=== PATIENT | male | born 1965 | race Caucasian/White ===

== ENCOUNTER 2016-11-16 17:34 | Emergency (ER) | payer BC, OTHER ==
[~2016-11-16] VITALS: Ht 188 cm; Wt 106.8 kg
[2016-11-16 18:43] VITALS: BP 146/94
== END 2016-11-16 18:44 | disposition home or self-care (01) ==
LOC: M ED 17:34
DX: S50.812A Abrasion of left forearm, initial encounter (principal); X58.XXXA Exposure to other specified factors, initial encounter; Y92.099 Unspecified place in other non-institutional residence as the place of occurrence of the external cause; Y93.89 Activity, other specified; Y99.9 Unspecified external cause status

== ENCOUNTER → 2019-12-02 | Outpatient (CLI) | payer OTHER, BC ==
[2019-12-02 12:29] LABS: MEAN CORPUSCULAR HEMOGLOBIN 32.9 pg (27.0-33.0); MEAN CORPUSCULAR HGB CONC 34.9 g/dl (32.0-36.5); MEAN CORPUSCULAR VOLUME 94.3 fl (80.0-96.0); PLATELET COUNT, AUTOMATED 151 10^3/uL (150-450); RED BLOOD COUNT 4.56 10^6/uL (4.30-6.10); WHITE BLOOD COUNT 7.6 10^3/uL (4.0-10.0)
[2019-12-02 12:52] LABS: HEMOGLOBIN A1c 5.6 %
[2019-12-02 12:57] LABS: ALBUMIN 3.9 GM/DL (3.2-5.2); ALT/SGPT 52 U/L (12-78); BILIRUBIN,TOTAL 0.6 MG/DL (0.2-1.0); BLOOD UREA NITROGEN 17 MG/DL (7-18); CALCIUM LEVEL 8.7 MG/DL (8.5-10.1); CARBON DIOXIDE LEVEL 29 MEQ/L (21-32); CHLORIDE LEVEL 107 MEQ/L (98-107); CHOLESTEROL LEVEL 162 MG/DL (<200); CHOLESTEROL RISK RATIO 3.375 (<5); CREATININE FOR GFR 1.24 MG/DL (0.70-1.30); GLOMERULAR FILTRATION RATE > 60.0 (>56); GLUCOSE, FASTING 104 MG/DL (70-100); HDL CHOLESTEROL 48 MG/DL (>40); LDL CHOLESTEROL 95 MG/DL (<100); NON-HDL-C 114 MG/DL; POTASSIUM SERUM 4.4 MEQ/L (3.5-5.1); SODIUM LEVEL 139 MEQ/L (136-145); TOTAL PROTEIN 7.8 GM/DL (6.4-8.2); TRIGLYCERIDES LEVEL 93 MG/DL (<150)
== END ==
LOC: M PLALAB 08:51
PROVIDERS: ATTEND Nurse Practitioner Family
DX: Z13.220 Encounter for screening for lipoid disorders (principal); Z13.228 Encounter for screening for other metabolic disorders

== ENCOUNTER → 2020-04-22 | Outpatient (CLI) | payer OTHER, BC | LOC: M LABSMTC 09:47 | PROVIDERS: ATTEND Anesthesiology | DX: Z01.812 Encounter for preprocedural laboratory examination (principal); Z20.822 Contact with and (suspected) exposure to COVID-19 ==

== ENCOUNTER 2020-04-27 09:52 | Day surgery (SDC) | payer BC, OTHER ==
[~2020-04-27] VITALS: Ht 188 cm; Wt 112.7 kg
[~2020-04-27 09:52] MED LIST: NS 1,000 ML IV ONE
[2020-04-27] MEDS ORDERED: LIDOCAINE 2% 100MG/5ML SDV (FOR ANES.) As Ordered ONE (12:19)
[2020-04-27] MEDS ORDERED: propofoL 500 MG/50 ML VIAL As Ordered ONE (12:19)
--- NOTE | 2020-04-27 12:30 | ROOR ---
Patient Name: Kirt Anthony Procedure Date: 04/27/2020 12:12 PM Date of : 1965 Age: 54 Room: [facility] Gender: Male Note Status: Finalized Procedure: Colonoscopy Indications: Screening for colorectal malignant neoplasm Providers: Robson COVINGTON MD Referring MD: Sandra Ervin Requesting Provider: Medicines: Monitored Anesthesia Care Complications: No immediate complications. Procedure: Pre-Anesthesia Assessment: - The heart rate, respiratory rate, oxygen saturations, blood pressure, adequacy of pulmonary ventilation, and response to care were monitored throughout the procedure. The Colonoscope was introduced through the anus and advanced to the terminal ileum, with identification of the appendiceal orifice and IC valve. The colonoscopy was performed without difficulty. The patient tolerated the procedure well. The quality of the bowel preparation was good. Findings: The perianal and digital rectal examinations were normal. Small Internal Hemorrhoids. The entire examined colon appeared normal on direct and retroflexion views. Impression: - Small Internal Hemorrhoids. - The entire examined colon is normal on direct and retroflexion views. - No specimens collected. Recommendation: - Repeat colonoscopy in 10 years for screening purposes. Procedure Code(s): --- Professional --- 61369, Colonoscopy, flexible; diagnostic, including collection of specimen(s) by brushing or washing, when performed (separate procedure) Diagnosis Code(s): --- Professional --- Z12.11, Encounter for screening for malignant neoplasm of colon CPT copyright 2019 [employer]. All rights reserved. The codes documented in this report are preliminary and upon computational geneticist review may be revised to meet current compliance requirements. Robson Covington MD Robson COVINGTON MD 04/27/2020 12:29:51 PM Electronically signed by Robson COVINGTON MD Number of Addenda: 0 Note Initiated On: 04/27/2020 12:12 PM Estimated Blood Loss: Estimated blood loss: none.
[2020-04-27 12:50] VITALS: BP 145/79
== END 2020-04-27 12:58 | disposition home or self-care (01) ==
LOC: M OPP 09:52
PROVIDERS: ATTEND Internal Medicine Gastroenterology
DX: Z12.11 Encounter for screening for malignant neoplasm of colon (principal); K64.8 Other hemorrhoids; Z83.3 Family history of diabetes mellitus; Z82.49 Family history of ischemic heart disease and other diseases of the circulatory system; Z90.49 Acquired absence of other specified parts of digestive tract

== ENCOUNTER → 2021-03-05 | Outpatient (CLI) | payer BC, OTHER ==
[2021-03-05 15:07] LABS: BASO % 0.4 % (0.0-1.0); EOS # 0.2 10^3/uL (0.0-0.5); EOS % 1.9 % (0.0-3.0); HEMATOCRIT 42.1 % (42.0-52.0); HEMOGLOBIN 14.3 g/dl (13.5-17.5); LYMPH # 2.4 10^3/uL (1.5-5.0); LYMPH % 22.2 % (24.0-44.0); MEAN CORPUSCULAR HEMOGLOBIN 32.4 pg (27.0-33.0); MEAN CORPUSCULAR VOLUME 95.2 fl (80.0-96.0); MONO # 1.3 10^3/uL (0.0-0.8); MONO % 11.8 % (2.0-8.0); NEUTROPHILS # 6.8 10^3/uL (1.5-8.5); NEUTROPHILS % 63.1 % (36.0-66.0); PLATELET COUNT, AUTOMATED 163 10^3/uL (150-450); RED BLOOD COUNT 4.42 10^6/uL (4.30-6.10); WHITE BLOOD COUNT 10.8 10^3/uL (4.0-10.0)
[2021-03-05 18:31] LABS: ALBUMIN 3.8 GM/DL (3.2-5.2); ALT/SGPT 49 U/L (12-78); BILIRUBIN,TOTAL 0.4 MG/DL (0.2-1.0); BLOOD UREA NITROGEN 14 MG/DL (7-18); CALCIUM LEVEL 8.9 MG/DL (8.5-10.1); CARBON DIOXIDE LEVEL 29 MEQ/L (21-32); CHLORIDE LEVEL 108 MEQ/L (98-107); CREATININE FOR GFR 1.08 MG/DL (0.70-1.30); GLOMERULAR FILTRATION RATE > 60.0 (>56); GLUCOSE, FASTING 122 MG/DL (70-100); POTASSIUM SERUM 4.2 MEQ/L (3.5-5.1); SODIUM LEVEL 143 MEQ/L (136-145); TOTAL PROTEIN 7.7 GM/DL (6.4-8.2)
[2021-03-05 19:12] LABS: HEMOGLOBIN A1c 5.9 %
== END ==
LOC: M PLALAB 10:44
PROVIDERS: ATTEND Nurse Practitioner Family
DX: Z00.00 Encounter for general adult medical examination without abnormal findings (principal)

== ENCOUNTER 2024-01-02 16:18 | Inpatient (IN) | payer BC, OTHER ==
[~2024-01-02] VITALS: Ht 188 cm; Wt 111.4 kg
[2024-01-02 20:54] LABS: BASO % 0.4 % (0.0-1.0); EOS # 0.2 10^3/uL (0.0-0.5); HEMATOCRIT 36.3 % (42.0-52.0); HEMOGLOBIN 12.5 g/dl (13.5-17.5); LYMPH # 2.1 10^3/uL (1.5-5.0); MEAN CORPUSCULAR HEMOGLOBIN 32.1 pg (27.0-33.0); MEAN CORPUSCULAR HGB CONC 34.4 g/dl (32.0-36.5); MEAN CORPUSCULAR VOLUME 93.3 fl (80.0-96.0); MONO # 1.1 10^3/uL (0.0-0.8); NEUTROPHILS # 6.8 10^3/uL (1.5-8.5); NEUTROPHILS % 66.1 % (36.0-66.0); PLATELET COUNT, AUTOMATED 261 10^3/uL (150-450); RED BLOOD COUNT 3.89 10^6/uL (4.30-6.10); WHITE BLOOD COUNT 10.3 10^3/uL (4.0-10.0)
[2024-01-02] MEDS ORDERED: ISOVUE-370 76% 100ML VIAL As Ordered ONE (20:58)
[2024-01-02 21:04] LABS: INR 1.1; PROTHROMBIN TIME 13.9 SECONDS (12.5-14.5)
[2024-01-02 21:15] LABS: CK-MB VALUE MASS < 1.0 NG/ML (<3.6); CPK CREATINE PHOSPHOKINASE 113 U/L (46-171); MB/CK RELATIVE INDEX 0.88 (< OR =4)
[2024-01-02] MEDS ORDERED: HOME MED LIST COMPLETE! XX SCH (22:05)
[2024-01-02] MEDS: ENOXAPARIN 100MG/1ML SYRINGE (J1650 PER 10MG) SC ONE (22:08)
[2024-01-02] MEDS ORDERED: ACETAMINOPHEN 325 MG TAB PO PRN (22:20)
[2024-01-02] MEDS ORDERED: MOM 30ML SUSPENSION UDC PO PRN (22:20)
[2024-01-02] MEDS ORDERED: ENOXAPARIN 120MG/0.8ML SYRINGE SC SCH (22:30)
[2024-01-03 04:15] VITALS: BP 158/74; TEMP 98; O2SAT 96
[2024-01-03 06:00] VITALS: BP 136/64; O2SAT 95
[2024-01-03 07:00] VITALS: O2SAT 94
[2024-01-03 08:00] VITALS: BP 130/64; TEMP 98.1; O2SAT 95
[2024-01-03] MEDS ORDERED: ENOXAPARIN 100MG/1ML SYRINGE (J1650 PER 10MG) SC SCH (09:00)
[2024-01-03 09:21] LABS: HEMATOCRIT 35.2 % (42.0-52.0); HEMOGLOBIN 12.1 g/dl (13.5-17.5); MEAN CORPUSCULAR HEMOGLOBIN 31.8 pg (27.0-33.0); MEAN CORPUSCULAR HGB CONC 34.4 g/dl (32.0-36.5); MEAN CORPUSCULAR VOLUME 92.6 fl (80.0-96.0); PLATELET COUNT, AUTOMATED 244 10^3/uL (150-450); WHITE BLOOD COUNT 9.5 10^3/uL (4.0-10.0)
[2024-01-03 09:46] LABS: ALBUMIN 3.4 G/DL (3.2-5.2); ALKALINE PHOSPHATASE 92 U/L (46-116); ALT/SGPT 42 U/L (7.0-40); AST/SGOT 22 U/L (<34); BILIRUBIN,TOTAL 0.8 MG/DL (0.3-1.2); BLOOD UREA NITROGEN 15 MG/DL (9-23); CALCIUM LEVEL 9.1 MG/DL (8.5-10.1); CARBON DIOXIDE LEVEL 28 MMOL/L (20-31); CHLORIDE LEVEL 103 MMOL/L (98-107); GLOMERULAR FILTRATION RATE > 60.0 (>56); GLUCOSE, FASTING 189 MG/DL (60-100); MAGNESIUM LEVEL 2.1 MG/DL (1.8-2.4); POTASSIUM SERUM 4.2 MMOL/L (3.5-5.1); SODIUM LEVEL 137 MMOL/L (136-145); TOTAL PROTEIN 7.6 G/DL (5.7-8.2)
[2024-01-03] MEDS ORDERED: ELIQ5TAB PO ×2 (09:51→11:24)
[2024-01-03 10:00] VITALS: BP 160/69; O2SAT 96
[2024-01-03] MEDS: ENOXAPARIN 120MG/0.8ML SYRINGE SC SCH (10:06)
[2024-01-03 12:04] VITALS: BP 140/72; TEMP 98.5; O2SAT 96
[2024-01-06 01:11] LABS: CARDIOLIPIN IGA ANTIBODY 3.8 APL-U/mL (<20.0); CARDIOLIPIN IGG ANTIBODY 3.7 GPL-U/mL (<20.0); CARDIOLIPIN IGM ANTIBODY 45.4 MPL-U/mL (<20.0)
== END 2024-01-03 13:47 | disposition home or self-care (01) | DRG 134 ==
LOC: M ED 16:18 → M ED INP 22:17 → M ICU 01-03 04:05
PROVIDERS: ADMIT Internal Medicine; ATTEND Internal Medicine
PROC: B246ZZZ Ultrasonography of Right and Left Heart (ICD-10-PCS; principal; 2024-01-03)
DX: I26.99 Other pulmonary embolism without acute cor pulmonale (principal); I10 Essential (primary) hypertension; Z86.16 Personal history of COVID-19; I82.412 Acute embolism and thrombosis of left femoral vein

== ENCOUNTER → 2024-02-04 | Outpatient (REF) | payer BC ==
[~2024-02-04] MED LIST changes: +ELIQ5TAB PO; -NS 1,000 ML IV ONE
[2024-02-04 14:02] LABS: PSA SCREENING 0.39 NG/ML (< 4.00)
[2024-02-04 14:05] LABS: FERRITIN 358.9 NG/ML (10.5-307.3)
[2024-02-04 14:07] LABS: BASO % 0.4 % (0.0-1.0); EOS # 0.2 10^3/uL (0.0-0.5); EOS % 2.5 % (0.0-3.0); HEMATOCRIT 41.4 % (42.0-52.0); HEMOGLOBIN 13.8 g/dl (13.5-17.5); LYMPH # 1.8 10^3/uL (1.5-5.0); LYMPH % 25.4 % (24.0-44.0); MEAN CORPUSCULAR HEMOGLOBIN 31.7 pg (27.0-33.0); MEAN CORPUSCULAR HGB CONC 33.3 g/dl (32.0-36.5); MONO % 13.6 % (2.0-8.0); NEUTROPHILS # 4.1 10^3/uL (1.5-8.5); NEUTROPHILS % 57.5 % (36.0-66.0); PLATELET COUNT, AUTOMATED 156 10^3/uL (150-450); RED BLOOD COUNT 4.36 10^6/uL (4.30-6.10); WHITE BLOOD COUNT 7.1 10^3/uL (4.0-10.0)
[2024-02-08 18:37] LABS: APTT APSCOMP 41 sec (<=40); DRVTT Screen Seconds 48 sec (<=45); DRVVT CONFIRM Negative (Negative); HEXAGONAL PHASE CONFIRM Negative (Negative)
[2024-02-09 23:04] LABS: Anticardiolipin Ab, IGG 3.2 GPL-U/mL (<20.0); Anticardiolipin Ab, IGM 34.9 MPL-U/mL (<20.0); Anticardiolipin Ab, IgA 2.8 APL-U/mL (<20.0); Beta-2 GLYCOPROTEIN I, IGG 2.5 U/mL (<20.0)
== END ==
LOC: M SFHCPLAZ 08:26
PROVIDERS: ATTEND Internal Medicine Hematology
DX: I82.90 Acute embolism and thrombosis of unspecified vein (principal)
CPT/HCPCS: 82728; 83540; 83880; 85025; 85046; 85379; 85730; 86146; 86147; G0103

== ENCOUNTER → 2024-03-10 | Outpatient (POV) | payer BC ==
[~2024-03-10] VITALS: Ht 188 cm; Wt 111.4 kg
[2024-03-10 15:14] VITALS: BP 176/86; O2SAT 96
== END ==
LOC: M IRPOV 15:03
PROVIDERS: ATTEND Radiology Diagnostic Radiology
DX: I82.412 Acute embolism and thrombosis of left femoral vein (principal); I82.492 Acute embolism and thrombosis of other specified deep vein of left lower extremity; I26.99 Other pulmonary embolism without acute cor pulmonale; I10 Essential (primary) hypertension; R23.8 Other skin changes; D68.69 Other thrombophilia; Z79.01 Long term (current) use of anticoagulants; Z80.8 Family history of malignant neoplasm of other organs or systems; Z82.3 Family history of stroke; Z82.49 Family history of ischemic heart disease and other diseases of the circulatory system; Z86.16 Personal history of COVID-19; Z86.718 Personal history of other venous thrombosis and embolism; Z91.199 Patient's noncompliance with other medical treatment and regimen due to unspecified reason
CPT/HCPCS: G0463; G2212

== ENCOUNTER → 2024-03-15 | Outpatient (CLI) | payer BC ==
[2024-03-15 13:22] LABS: HEMOGLOBIN A1c 6.9 % (4.0-6.0)
[2024-03-15 13:37] LABS: ALBUMIN 3.8 G/DL (3.2-5.2); ALKALINE PHOSPHATASE 85 U/L (40-129); ALT/SGPT 44 U/L (7.0-40); AST/SGOT 24 U/L (<34); BILIRUBIN,TOTAL 0.4 MG/DL (0.3-1.2); BLOOD UREA NITROGEN 16 MG/DL (9-23); CALCIUM LEVEL 9.1 MG/DL (8.5-10.1); CARBON DIOXIDE LEVEL 30 MMOL/L (20-31); CHLORIDE LEVEL 104 MMOL/L (98-107); CHOLESTEROL LEVEL 157 MG/DL (<200); CHOLESTEROL RISK RATIO 3.28 (<5); CREATININE FOR GFR 0.96 MG/DL (0.70-1.30); GLOMERULAR FILTRATION RATE > 60.0 (>56); GLUCOSE, FASTING 160 MG/DL (60-100); HDL CHOLESTEROL 47.8 MG/DL (>40); LDL CHOLESTEROL 93.4 MG/DL (<100); NON-HDL-C 109.2 MG/DL; POTASSIUM SERUM 4.1 MMOL/L (3.5-5.1); PSA SCREENING 0.23 NG/ML (< 4.00); SODIUM LEVEL 141 MMOL/L (136-145); TOTAL PROTEIN 8.1 G/DL (5.7-8.2); TRIGLYCERIDES LEVEL 79 MG/DL (<150)
== END ==
LOC: M PLALAB 11:16
PROVIDERS: ATTEND Nurse Practitioner Family
DX: I82.412 Acute embolism and thrombosis of left femoral vein (principal); R73.01 Impaired fasting glucose; Z13.220 Encounter for screening for lipoid disorders; Z12.5 Encounter for screening for malignant neoplasm of prostate
CPT/HCPCS: 36415; 80053; 80061; 83036; G0103

== ENCOUNTER → 2024-04-12 | Outpatient (CLI) | payer BC ==
[~2024-04-12] MED LIST changes: +ISOVUE-370 76% 100ML VIAL As Ordered ONE
== END ==
LOC: M RAD 12:16
PROVIDERS: ATTEND Radiology Diagnostic Radiology
DX: I87.002 Postthrombotic syndrome without complications of left lower extremity (principal)
CPT/HCPCS: 74177; Q9967

== ENCOUNTER → 2024-04-14 | Outpatient (REF) | payer BC ==
[~2024-04-14] MED LIST changes: -ISOVUE-370 76% 100ML VIAL As Ordered ONE
== END ==
LOC: M SFHCPLAZ 09:04
PROVIDERS: ATTEND Internal Medicine Hematology
DX: E27.8 Other specified disorders of adrenal gland (principal)

== ENCOUNTER → 2024-05-12 | Outpatient (CLI) | payer BC ==
[~2024-05-12] MED LIST changes: +ACET32TAB PO; +AMLO25TA PO; +LISI5TAB11 PO; +METF500T13 PO; +PROHANCE 279.3MG/ML 15ML VIAL ONE; +PROHANCE 279.3MG/ML 5ML VIAL ONE
== END ==
LOC: M PLAIMG 11:20
PROVIDERS: ATTEND Nurse Practitioner Family
DX: E27.8 Other specified disorders of adrenal gland (principal)
CPT/HCPCS: 74183; A9576

== ENCOUNTER 2024-05-13 08:31 | Observation (INO) | payer BC ==
[~2024-05-13] VITALS: Ht 188 cm; Wt 113.6 kg
[~2024-05-13 08:31] MED LIST changes: -ACET32TAB PO; -AMLO25TA PO; -LISI5TAB11 PO; -METF500T13 PO; -PROHANCE 279.3MG/ML 15ML VIAL ONE; -PROHANCE 279.3MG/ML 5ML VIAL ONE
[2024-05-13] MEDS ORDERED: NS (Normal Saline) 0.9% 1,000 ML IV SCH ×2 (09:00→13:35)
[2024-05-13] MEDS ORDERED: HEPARIN 1,000UNITS/ML 10ML VIAL (FOR RADIOLOGY & DIALYSIS ONLY) As Ordered ONE (09:54)
[2024-05-13] MEDS ORDERED: HEPARIN 1,000UNITS/ML 10ML VIAL (FOR RADIOLOGY & DIALYSIS ONLY) IV SCH (09:55)
[2024-05-13] MEDS: fentaNYL 100 MCG/2 ML INJECTION IV PRN (11:22)
[2024-05-13] MEDS: MIDAZOLAM INJ 2MG/2ML VIAL IV PRN (11:22)
[2024-05-13] MEDS ORDERED: LABETALOL 100MG/20ML VIAL As Ordered ONE (11:48)
[2024-05-13] MEDS: LABETALOL 100MG/20ML VIAL IV STA ×3 (11:55→12:16)
[2024-05-13] MEDS: HEPARIN 1,000UNITS/ML 10ML VIAL (FOR RADIOLOGY & DIALYSIS ONLY) IV SCH (12:05)
[2024-05-13] MEDS ORDERED: hydrALAZINE 20MG/ML 1ML VIAL As Ordered ONE (12:38)
[2024-05-13] MEDS: hydrALAZINE 20MG/ML 1ML VIAL IV STA ×2 (12:46→13:01)
[2024-05-13 13:01] VITALS: BP 192/98
[2024-05-13] MEDS: LIDOCAINE 1% MDV 20ML VIAL SC SCH (13:20)
[2024-05-13] MEDS: ISOVUE-300 61% 100ML VIAL IV SCH (13:21)
[2024-05-13] MEDS ORDERED: ACETAMINOPHEN 325 MG TAB PO PRN (14:55)
[2024-05-13 15:19] LABS: HEMATOCRIT 39.7 % (42.0-52.0); HEMOGLOBIN 14.1 g/dl (13.5-17.5); MEAN CORPUSCULAR HEMOGLOBIN 32.5 pg (27.0-33.0); MEAN CORPUSCULAR HGB CONC 35.5 g/dl (32.0-36.5); MEAN CORPUSCULAR VOLUME 91.5 fl (80.0-96.0); PLATELET COUNT, AUTOMATED 166 10^3/uL (150-450); RED BLOOD COUNT 4.34 10^6/uL (4.30-6.10); WHITE BLOOD COUNT 20.7 10^3/uL (4.0-10.0)
[2024-05-13 15:31] LABS: ALBUMIN 3.5 G/DL (3.2-5.2); ALKALINE PHOSPHATASE 65 U/L (40-129); ALT/SGPT 49 U/L (7.0-40); AST/SGOT 28 U/L (<34); BILIRUBIN,TOTAL 0.8 MG/DL (0.3-1.2); BLOOD UREA NITROGEN 16 MG/DL (9-23); CALCIUM LEVEL 8.6 MG/DL (8.5-10.1); CARBON DIOXIDE LEVEL 20 MMOL/L (20-31); CHLORIDE LEVEL 109 MMOL/L (98-107); CREATININE FOR GFR 0.85 MG/DL (0.70-1.30); GLOMERULAR FILTRATION RATE > 60.0 (>56); GLUCOSE, FASTING 182 MG/DL (60-100); POTASSIUM SERUM 4.1 MMOL/L (3.5-5.1); SODIUM LEVEL 140 MMOL/L (136-145); TOTAL PROTEIN 7.5 G/DL (5.7-8.2)
[2024-05-13 15:38] LABS: INR 1.22; PROTHROMBIN TIME 15.7 SECONDS (12.5-14.5)
[2024-05-13 15:59] LABS: PARTIAL THROMBOPLASTIN TIME > 240.0 SECONDS (24.8-34.2)
[2024-05-13 17:01] VITALS: BP 168/80; TEMP 97.4; O2SAT 96
[2024-05-13 18:00] VITALS: BP 137/70
[2024-05-13] MEDS: APIXABAN 5 MG TAB (ELIQUIS) PO SCH (20:14)
[2024-05-13 20:15] VITALS: BP 134/65; TEMP 98.2; O2SAT 96
[2024-05-13] MEDS ORDERED: DEXTROSE 50% 50ML SYRINGE IV PRN (21:40)
[2024-05-13] MEDS ORDERED: GLUCAGON INJ 1MG VIAL SC PRN (21:40)
[2024-05-13] MEDS ORDERED: GLUCOSE 4 GM CHEW PO PRN (21:40)
[2024-05-13 22:15] LABS: CHOLESTEROL LEVEL 156 MG/DL (<200); CHOLESTEROL RISK RATIO 3.57 (<5); HDL CHOLESTEROL 43.6 MG/DL (>40); LDL CHOLESTEROL 106.2 MG/DL (<100); NON-HDL-C 112.4 MG/DL; TRIGLYCERIDES LEVEL 31 MG/DL (<150)
[2024-05-13 22:26] LABS: HEMOGLOBIN A1c 6.6 % (4.0-6.0)
[2024-05-13 23:35] VITALS: BP 142/72; TEMP 97.6; O2SAT 96
[2024-05-14 03:50] VITALS: BP 152/74; TEMP 97.9; O2SAT 95
[2024-05-14 06:53] LABS: HEMOGLOBIN 13.6 g/dl (13.5-17.5); MEAN CORPUSCULAR HEMOGLOBIN 32.2 pg (27.0-33.0); MEAN CORPUSCULAR HGB CONC 34.9 g/dl (32.0-36.5); MEAN CORPUSCULAR VOLUME 92.4 fl (80.0-96.0); PLATELET COUNT, AUTOMATED 149 10^3/uL (150-450); RED BLOOD COUNT 4.22 10^6/uL (4.30-6.10); WHITE BLOOD COUNT 13.5 10^3/uL (4.0-10.0)
[2024-05-14] MEDS ORDERED: ELIQ5TAB PO (06:55)
[2024-05-14] MEDS ORDERED: HOME MED LIST COMPLETE! XX SCH (06:55)
[2024-05-14 07:07] LABS: INR 1.2; PROTHROMBIN TIME 15.5 SECONDS (12.5-14.5)
[2024-05-14 07:27] LABS: ALBUMIN 3.5 G/DL (3.2-5.2); ALKALINE PHOSPHATASE 66 U/L (40-129); ALT/SGPT 42 U/L (7.0-40); AST/SGOT 18 U/L (<34); BILIRUBIN,TOTAL 0.6 MG/DL (0.3-1.2); BLOOD UREA NITROGEN 15 MG/DL (9-23); CALCIUM LEVEL 8.4 MG/DL (8.5-10.1); CARBON DIOXIDE LEVEL 28 MMOL/L (20-31); CHLORIDE LEVEL 106 MMOL/L (98-107); CREATININE FOR GFR 0.85 MG/DL (0.70-1.30); GLOMERULAR FILTRATION RATE > 60.0 (>56); GLUCOSE, FASTING 155 MG/DL (60-100); POTASSIUM SERUM 3.9 MMOL/L (3.5-5.1); SODIUM LEVEL 141 MMOL/L (136-145); TOTAL PROTEIN 7.2 G/DL (5.7-8.2)
[2024-05-14] MEDS ORDERED: ACET32TAB PO (07:36)
[2024-05-14] MEDS ORDERED: METF500T13 PO (07:36)
[2024-05-14] MEDS ORDERED: AMLO25TA PO (07:37)
[2024-05-14 07:43] VITALS: BP 155/75; TEMP 97.4; O2SAT 95
[2024-05-14] MEDS ORDERED: LISI5TAB11 PO (08:53)
[2024-05-14] MEDS: INSULIN LISPRO (NovoLOG) PER UNIT SC SCH (09:11)
[2024-06-16] MEDS ORDERED: NORV5TAB PO (14:18)
== END 2024-05-14 11:43 | disposition home or self-care (01) ==
LOC: M IRPRO 08:31 → M PCU 08:32 → M IRPRO 16:39 → UNDOADMOB 16:39 → M PCU 16:39 → M IRPRO 16:40 → M PCU 16:40 → M LDI 16:40 → UNDODISOB 05-14 11:43
PROVIDERS: ADMIT Internal Medicine; ATTEND Internal Medicine
DX: I87.009 Postthrombotic syndrome without complications of unspecified extremity (principal); I95.81 Postprocedural hypotension; R06.02 Shortness of breath; H53.8 Other visual disturbances; R42 Dizziness and giddiness; F41.9 Anxiety disorder, unspecified; I10 Essential (primary) hypertension; E11.9 Type 2 diabetes mellitus without complications; Z86.16 Personal history of COVID-19; Z86.718 Personal history of other venous thrombosis and embolism; Z86.711 Personal history of pulmonary embolism; Z83.3 Family history of diabetes mellitus; Z82.49 Family history of ischemic heart disease and other diseases of the circulatory system; Z79.01 Long term (current) use of anticoagulants
CPT/HCPCS: 36415; 37187; 37248; 37249; 71045; 80053; 80061; 83036; 85027; 85610; 85730; 93005; 99152; 99153; C1757; C1894; J0360; J1815; J1920; J2250; J3010; Q9967

== ENCOUNTER → 2024-06-16 | Outpatient (POV) | payer BC ==
[~2024-06-16] VITALS: Ht 188 cm; Wt 111.4 kg
[~2024-06-16] MED LIST changes: +ACET32TAB PO; +AMLO25TA PO; +LISI5TAB11 PO; +METF500T13 PO; +NORV5TAB PO
[2024-06-16 14:12] VITALS: BP 138/68; O2SAT 97
== END ==
LOC: M IRPOV 13:59
PROVIDERS: ATTEND Radiology Diagnostic Radiology
DX: Z48.812 Encounter for surgical aftercare following surgery on the circulatory system (principal); I87.092 Postthrombotic syndrome with other complications of left lower extremity; Z79.01 Long term (current) use of anticoagulants

== ENCOUNTER → 2024-10-15 | Outpatient (CLI) | payer BC ==
[2024-10-15 15:54] LABS: BASO # 0.0 10^3/uL (0.0-0.2); BASO % 0.5 % (0.0-1.0); EOS # 0.2 10^3/uL (0.0-0.5); EOS % 2.1 % (0.0-3.0); LYMPH # 2.2 10^3/uL (1.5-5.0); LYMPH % 26.6 % (24.0-44.0); MONO # 1.0 10^3/uL (0.0-0.8); MONO % 12.7 % (2.0-8.0); NEUTROPHILS # 4.7 10^3/uL (1.5-8.5); NEUTROPHILS % 57.5 % (36.0-66.0); PLATELET COUNT, AUTOMATED 168 10^3/uL (150-450)
[2024-10-15 16:16] LABS: ALT/SGPT 41.0 U/L (7.0-40); AST/SGOT 23.0 U/L (<34); CALCIUM LEVEL 8.8 MG/DL (8.5-10.1); CARBON DIOXIDE LEVEL 29.0 MMOL/L (20-31); CHLORIDE LEVEL 104.0 MMOL/L (98-107); CREATININE FOR GFR 1.01 MG/DL (0.70-1.30); CREATININE, URINE 196.4 MG/DL; GLOMERULAR FILTRATION RATE 86.2 (>56); MALB URINE SIEMENS 4.0 MG/L; MAU/CREAT RATIO 2.0 MCG/MG (0.0-30.0); POTASSIUM SERUM 4.5 MMOL/L (3.5-5.1); SODIUM LEVEL 143.0 MMOL/L (136-145)
[2024-10-15 16:25] LABS: ESTIMATED AVERAGE GLUCOSE 128.0 MG/DL (60-110)
== END ==
LOC: M PLALAB 14:28
PROVIDERS: ATTEND Nurse Practitioner Family
DX: E11.69 Type 2 diabetes mellitus with other specified complication (principal); I10 Essential (primary) hypertension

== ENCOUNTER → 2025-02-03 | Outpatient (REF) | payer BC, OTHER ==
[~2025-02-03] MED LIST changes: +ECOT81TA5 PO; +LOSA25TA13
== END ==
LOC: M SFHCLERA 17:18
PROVIDERS: ATTEND Student in an Organized Health Care Education/Training Program
DX: R09.89 Other specified symptoms and signs involving the circulatory and respiratory systems (principal)